=== PATIENT | male | born 1960 | race Caucasian/White ===

== ENCOUNTER 2023-12-01 07:37 | Inpatient (IN) | payer OTHER ==
[~2023-12-01] VITALS: Ht 180.3 cm; Wt 85.7 kg
[~2023-12-01 07:37] MED LIST: CEFADROXIL1 G PO; CLEOCIN HCL300 MG PO; INTESTINEX1 CA1 PO; LEVAQUIN750 MG PO; NEURONTIN800 MG; PEPCID AC10 MG; PERCOCET; ZANTAC150 MG PO
[2023-12-01] MEDS ORDERED: HEMOSTATIC MATRIX 1 KIT KIT TOP ONE (10:44)
[2023-12-01] MEDS ORDERED: POVIDONE-IODINE 118 ML BOTT TOP ONE (10:44)
[2023-12-01] MEDS ORDERED: DIBUCAINE 30 GM TUBE ONE (10:44)
[2023-12-01] MEDS ORDERED: METRONIDAZOLE/SODIUM CHLORIDE 500 MG/100 ML PIGGYBACK IV ONE (10:45)
[2023-12-01] MEDS ORDERED: CEFTRIAXONE SODIUM 2,000 MG VIAL ONE (10:45)
[2023-12-01] MEDS ORDERED: LIDOCAINE HCL 1%/EPINEPHRINE 20ML VIAL IJ ONE (10:45)
[2023-12-01] MEDS ORDERED: BUPIVACAINE HCL/MPF 0.5% 30ML VIAL ONE (10:45)
[2023-12-01] MEDS ORDERED: ONDANSETRON HCL 2 MG/ML VIAL IV PRN (15:15)
[2023-12-01] MEDS ORDERED: RINGERS SOLUTION,LACTATED 1,000 ML IV SCH (15:15)
[2023-12-01] MEDS ORDERED: OxyCODONE HCL 5 MG TABLET (ROXICODONE) PO PRN (15:15)
[2023-12-01] MEDS ORDERED: MORPHINE SULFATE 4 MG/ML CARTRIDGE IV PRN (15:15)
[2023-12-01] MEDS ORDERED: SIMETHICONE 125 MG CAPSULE PO ONE (16:50)
[2023-12-01] MEDS ORDERED: GABAPENTIN 300 MG CAPSULE PO ONE (16:51)
[2023-12-01] MEDS ORDERED: HYOSCYAMINE SULFATE 0.125 MG TAB.SUBL ONE (16:51)
[2023-12-01] MEDS ORDERED: HYOSCYAMINE SULFATE 0.125 MG TAB.SUBL SL SCH (17:00)
[2023-12-01] MEDS ORDERED: METOCLOPRAMIDE HCL 10 MG TABLET PO SCH (17:00)
[2023-12-01] MEDS ORDERED: GABAPENTIN 300 MG CAPSULE PO SCH (17:00)
[2023-12-01] MEDS ORDERED: POLYETHYLENE GLYCOL 3350 17 GM BLIST.PACK PO SCH (17:00)
[2023-12-01] MEDS ORDERED: CELECOXIB 200 MG CAPSULE PO SCH (17:00)
[2023-12-01] MEDS ORDERED: SIMETHICONE 125 MG CAPSULE PO SCH (17:00)
[2023-12-01 17:19] LABS: HEMATOCRIT 44.4 % (39.0-48.0); HEMOGLOBIN 15.1 g/dL (13-16.00); MEAN CELL VOLUME 95.6 fL (80.0-100.00); MEAN CORPUSCULAR HEMOGLOBIN 32.6 pg (27.00-32.0); MEAN CORPUSCULAR HGB CONC 34.1 g/dl (32.0-36.0); PLATELET COUNT 285 K/uL (150-450); RED BLOOD COUNT 4.64 M/uL (4.00-6.00); RED CELL DISTRIBUTION WIDTH 14.3 % (11.5-14.5)
[2023-12-01] MEDS ORDERED: ACETAMINOPHEN 500 MG GEL..CAP PO SCH (20:00)
[2023-12-01] MEDS ORDERED: FAMOTIDINE/PF 20 MG/2 ML VIAL IV PUSH SCH (21:00)
[2023-12-02 08:05] LABS: HEMATOCRIT 41.6 % (39.0-48.0); HEMOGLOBIN 14.2 g/dL (13-16.00); MEAN CELL VOLUME 93.9 fL (80.0-100.00); MEAN CORPUSCULAR HGB CONC 34.1 g/dl (32.0-36.0); PLATELET COUNT 272 K/uL (150-450); RED BLOOD COUNT 4.44 M/uL (4.00-6.00); RED CELL DISTRIBUTION WIDTH 14.3 % (11.5-14.5)
[2023-12-02 08:36] LABS: CALCIUM 8.6 mg/dL (8.5-10.1); CREATININE SERUM 0.82 mg/dL (0.70-1.30); GFR 95.51; MAGNESIUM 1.9 mg/dL (1.8-2.4); PHOSPHOROUS 2.9 mg/dL (2.5-4.9); POTASSIUM 4.39 mEq/L (3.5-5.1)
[2023-12-02] MEDS ORDERED: LACTOBACILLUS ACIDOPHILUS 1 CAP CAP PO SCH (09:00)
[2023-12-02] MEDS ORDERED: LACTULOSE 20 G/30 ML BLIST.PACK PO SCH (09:00)
[2023-12-02] MEDS ORDERED: ENOXAPARIN SODIUM 40 MG/0.4 ML SYRINGE SUBCUTANEO SCH (17:00)
[2023-12-03] MEDS ORDERED: ENOXAPARIN SODIUM 40 MG/0.4 ML SYRINGE SUBCUTANEO SCH (09:00)
[2023-12-06] MEDS ORDERED: TRAMADOL HCL50 MG PO (15:26)
== END 2023-12-06 17:01 | disposition home or self-care (01) | DRG 349 ==
LOC: CIR.AMB 07:37 → SURH 11:15 → EDSTATUS 11:15 → O/R 13:48 → SURH 15:15
PROVIDERS: ADMIT Colon & Rectal Surgery; ATTEND Colon & Rectal Surgery
PROC: 0DBQ7ZZ Excision of Anus, Via Natural or Artificial Opening (ICD-10-PCS; 2023-12-01)
PROC: 0DQQ7ZZ Repair Anus, Via Natural or Artificial Opening (ICD-10-PCS; principal; 2023-12-01 09:45)
DX: K60.3 Anal fistula (principal); L73.2 Hidradenitis suppurativa

== ENCOUNTER 2024-08-09 05:35 | Day surgery (SDC) | payer OTHER ==
[2024-08-01 12:11] VITALS: BP 150/82
[~2024-08-09] VITALS: Ht 180.3 cm; Wt 83.9 kg
[~2024-08-09 05:35] MED LIST changes: +TRAMADOL HCL50 MG PO
[2024-08-09] MEDS ORDERED: BUPIVACAINE HCL 30 ML VIAL IJ ONE (10:30)
[2024-08-09] MEDS ORDERED: CEFTRIAXONE SODIUM 2,000 MG VIAL IV ONE (10:30)
[2024-08-09] MEDS ORDERED: DIBUCAINE 30 GM TUBE RECTAL ONE (10:30)
[2024-08-09] MEDS ORDERED: METRONIDAZOLE/SODIUM CHLORIDE 500 MG/100 ML PIGGYBACK IV ONE (10:30)
[2024-08-09] MEDS ORDERED: POVIDONE-IODINE 118 ML BOTT TOP ONE (10:30)
[2024-08-09] MEDS ORDERED: LIDOCAINE HCL 1%/EPINEPHRINE 20ML VIAL IJ ONE (10:30)
[2024-08-09] MEDS ORDERED: HEMOSTATIC MATRIX 1 KIT KIT TOP ONE (10:30)
== END 2024-08-09 14:05 | disposition home or self-care (01) ==
LOC: CIR.AMB 05:35 → EDSTATUS 12:15 → CIR.AMB 12:15
PROVIDERS: ATTEND Colon & Rectal Surgery
DX: K64.1 Second degree hemorrhoids (principal); K64.4 Residual hemorrhoidal skin tags; L73.2 Hidradenitis suppurativa; K60.50 Anorectal fistula, unspecified; H52.10 Myopia, unspecified eye